=== PATIENT | female | born 1985 | race Caucasian/White ===

== ENCOUNTER → 2016-06-16 | Outpatient (CLI) | payer MEDICAID ==
[2016-06-16 10:21] LABS: ABSOLUTE BASOPHILS # (AUTO) 0.1 10^3/uL (0.0-0.2); ABSOLUTE EOSINOPHILS # (AUTO) 0.5 10^3/uL (0.0-0.6); ABSOLUTE LYMPHOCYTES (AUTO) 2.2 10^3/uL (0.5-4.7); ABSOLUTE MONOCYTES (AUTO) 0.6 10^3/uL (0.1-1.4); ABSOLUTE NEUT (AUTO) 8.5 10^3/uL (1.7-8.2); BASOPHILS % (AUTO) 0.5 % (0-2); HEMATOCRIT 38.6 % (36.0-47.0); HEMOGLOBIN 12.3 g/dL (12.0-15.5); HGB HCT DIFFERENCE -1.7; MEAN CORPUSCULAR HEMOGLOBIN 26.9 pg (27.0-33.4); MEAN CORPUSCULAR HGB CONC 31.9 g/dL (32.0-36.0); MEAN CORPUSCULAR VOLUME 84 fl (80-97); MONOCYTES % (AUTO) 5.1 % (3-13); RED BLOOD COUNT 4.57 10^6/uL (3.72-5.28); RED CELL DISTRIBUTION WIDTH 15.1 % (11.5-14.0); SEGMENTED NEUTROPHILS % (AUTO) 71.4 % (42-78); WHITE BLOOD COUNT 11.8 10^3/uL (4.0-10.5)
[2016-06-16 10:45] LABS: ALANINE AMINOTRANSFERASE 24 U/L (9-52); ALBUMIN 3.7 g/dL (3.5-5.0); ALKALINE PHOSPHATASE 71 U/L (38-126); ANION GAP 11 (5-19); ASPARTATE AMINO TRANSFERASE 15 U/L (14-36); BILIRUBIN,TOTAL 0.3 mg/dL (0.2-1.3); BLOOD UREA NITROGEN 16 mg/dL (7-20); CARBON DIOXIDE 25 mmol/L (22-30); CHLORIDE 108 mmol/L (98-107); CHOLESTEROL 153.34 mg/dL (0-200); CREATININE RESULT 0.76 mg/dL (0.52-1.25); Direct HDL 44 mg/dL (>40); GLUCOSE 96 mg/dL (75-110); POTASSIUM 4.8 mmol/L (3.6-5.0); TOTAL PROTEIN 6.9 g/dL (6.3-8.2); TRIGLYCERIDES 51 mg/dL (<150)
[2016-06-16 10:56] LABS: DIRECT LDL 82 mg/dL (<100)
[2016-06-16 11:12] LABS: THYROID STIMULATING HORMONE 3.25 uIU/mL (0.47-4.68)
== END ==
LOC: OD 08:31
PROVIDERS: ATTEND Nurse Practitioner Psychiatric/Mental Health
DX: F31.9 Bipolar disorder, unspecified (principal); Z79.899 Other long term (current) drug therapy
CPT/HCPCS: 36415; 80053; 80061; 83036; 84439; 84443; 85025

== ENCOUNTER → 2016-10-14 | Outpatient (CLI) | payer MEDICAID | LOC: WI 08:45 | PROVIDERS: ATTEND Physician Assistant | DX: N64.9 Disorder of breast, unspecified (principal) | CPT/HCPCS: 76641; G0204; 77066 ==

== ENCOUNTER 2018-04-09 20:52 | Emergency (ER) | payer MEDICAID ==
--- NOTE | 2018-04-09 21:51 | ER Document Report ---
ED General - General Chief Complaint: Fall Stated Complaint: FALL/FACIAL AND LEG INJURY Time Seen by Provider: 04/09/18 21:39 Notes: Patient is a 32-year-old female that presents to the emergency department for chief complaint of face pain, leg pain and back pain after fall. Patient states that she tripped over a piece of concrete in the road earlier this evening, while she was at a festival, she fell forward, she did hit her face, she did not lose consciousness. She also injured her lower back, and her left valdez. She denies any other injuries. She at this time denies having any headache, but has some pain in her face on the left side, her parts clerk plant maintenance did notice that she had a bleeding nose, but has since stopped. She is also complaining of pain in the lower back mainly in the middle, currently rates his pain as a 6 out of 10, worse with ranges of motion. She also has some pain of the left knee. And it was painful to put weight on it. Denies any numbness, tingling or weakness, denies saddle anesthesia or paresthesia. She also denies having any urinary incontinence, or stool incontinence. Past Medical History: Developmental delay, asthma Past Surgical History: Denies surgical history Social History: Denies tobacco, alcohol or drug use. Family History: Reviewed and noncontributory for presenting illness Allergies: Reviewed, see documented allergy list. REVIEW OF SYSTEMS: Other than noted above, the 12 point review of systems was reviewed with the patient and were negative, all pertinent findings are included in the HPI. PHYSICAL EXAMINATION: Vital signs reviewed, nursing noted reviewed. GENERAL: Well-appearing, well-nourished and in no acute distress. HEAD: normocephalic. EYES: Eyes appear normal, extraocular movements intact, sclera anicteric, conjunctiva are normal. PERRLA ENT: nares patent, oropharynx clear without exudates. Moist mucous membranes. Mild tenderness with palpation over the right zygoma, without deformity, no broken teeth noted. There is no evidence of nosebleed at this time. Nasal bridge is nontender to palpate. NECK: Normal range of motion, supple without lymphadenopathy LUNGS: Breath sounds clear to auscultation bilaterally and equal. No wheezes rales or rhonchi. HEART: Regular rate and rhythm without murmurs ABDOMEN: Soft, nontender, normoactive bowel sounds. No rebound, guarding, or rigidity. No masses appreciated. EXTREMITIES: Mild tenderness to palpation of the medial aspect of the left lower leg, there is spotted areas of ecchymosis, measuring approximately 2 cm x 2 cm, with tenderness to palpate in these areas as well, no gross deformity. The rest the patient's extremity exam is grossly unremarkable. good range of motion, no pitting or edema. Back: No step-offs or deformities, there is tenderness with palpation to the midline of the lumbar spine around L4, no upper thoracic back tenderness. NEUROLOGICAL: No focal neurological deficits. Moves all extremities spontaneously Motor and sensory grossly intact on exam. PSYCH: Normal mood, normal affect. SKIN: Warm, Dry, normal turgor, no rashes or lesions noted on exposed skin TRAVEL OUTSIDE OF THE [place] IN LAST 30 DAYS: No - Related Data Allergies/Adverse Reactions: No Known Allergies Allergy (Verified 04/09/18 20:54) Past Medical History - Social History Smoking Status: Never Smoker Family History: Reviewed & Not Pertinent Pulmonary Medical History: Reports: Hx Asthma Psychiatric Medical History: Reports: Hx Attention Deficit Hyperactivity Disorder, Hx Bipolar Disorder, Hx Depression - Immunizations Hx Diphtheria, Pertussis, Tetanus Vaccination: Yes Physical Exam - Vital signs Vitals: Temp Pulse Resp BP Pulse Ox 98.0 F 82 18 116/65 100 04/09/18 20:58 04/09/18 20:58 04/09/18 20:58 04/09/18 20:58 04/09/18 20:58 Course - Re-evaluation Re-evalutation: Patient was seen and evaluated. She was treated for her pain with Tylenol and naproxen initially, was still having some pain therefore she is given oxycodone 5 mg x1. Patient's imaging was obtained of her facial bones, x-rays of the lumbar spine and tibia were obtained. These were reviewed, and all were negative for any acute fracture or bony injury. Patient made aware of findings , will discharge with a prescription for Robaxin, and naproxen to take for pain and muscle spasms. Advised to follow-up with her primary care physician. - Vital Signs Vital signs: Temp Pulse Resp BP Pulse Ox 97.5 F 76 18 110/61 100 04/09/18 23:31 04/09/18 23:31 04/09/18 20:58 04/09/18 23:31 04/09/18 23:31 Discharge - Discharge Clinical Impression: Fall Qualifiers: Encounter type: initial encounter Qualified Code(s): W19.XXXA - Unspecified fall, initial encounter Back pain Qualifiers: Back pain location: low back pain Chronicity: acute Back pain laterality: midline Sciatica presence: unspecified whether sciatica present Qualified Code(s ): M54.5 - Low back pain Leg pain Qualifiers: Laterality: left Qualified Code(s): M79.605 - Pain in left leg Contusion of face Qualifiers: Encounter type: initial encounter Qualified Code(s): S00.83XA - Contusion of other part of head, initial encounter Condition: Stable Disposition: HOME, SELF-CARE Instructions: Contusion ([facility]), Low Back Pain ([facility]) Prescriptions: Methocarbamol [Robaxin 500 mg Tablet] 500 mg PO TID PRN #15 tablet PRN Reason: Muscle Spasms Naproxen 500 mg PO BID PRN #30 tablet PRN Reason: back pain Referrals: ORLY FINNEGAN PA-C [COMMUNITY BASED STAFF] - Follow up as needed
[2018-04-09] MEDS ORDERED: ACETAMINOPHEN 325 MG TABLET PO ONE (21:52)
[2018-04-09] MEDS ORDERED: NAPROXEN 250 MG TABLET PO ONE (21:52)
--- NOTE | 2018-04-09 22:39 | RADIOLOGY REPORT (SQ) ---
CT MAXILLOFACIAL WITHOUT IV CONTRAST HISTORY: Facial trauma. COMPARISON: None. TECHNIQUE: CT scan of the facial bones without IV contrast. This exam was performed according to our departmental dose-optimization program, which includes automated exposure control, adjustment of the mA and/or kV according to patient size and/or use of iterative reconstruction technique. FINDINGS: No acute facial bone fracture. No mucosal thickening or air-fluid levels in the paranasal sinuses. Mastoid air cells are clear. No retrobulbar mass or hematoma. IMPRESSION: No acute maxillofacial fracture.
--- NOTE | 2018-04-09 22:58 | RADIOLOGY REPORT (SQ) ---
EXAM DESCRIPTION: XR TIBIA FIBULA 2 VIEWS COMPLETED DATE/TME: 04/09/2018 21:51 CLINICAL HISTORY: 32 years, Female, left leg pain, injury COMPARISON: None. NUMBER OF VIEWS: TECHNIQUE: LIMITATIONS: None. FINDINGS: No fracture or dislocation. The knee and ankle joints appear intact. Bone mineralization appears normal. IMPRESSION: No fracture or dislocation. 2011 [facility] [employer]- All Rights Reserved
--- NOTE | 2018-04-09 23:05 | RADIOLOGY REPORT (SQ) ---
EXAM DESCRIPTION: XR LUMBAR SPINE ANTEROPOSTERIOR, LATERAL, AND OBLIQUES COMPLETED DATE/TME: 04/09/2018 21:51 CLINICAL HISTORY: 32 years Female, back pain, injury COMPARISON: None. Findings: Normal alignment and curvature. Mild disc desiccation at the thoracolumbar junction. Vertebral and intervertebral heights are maintained. Extraspinal structures are grossly intact. IMPRESSION: No acute findings of XR LUMBAR SPINE ANTEROPOSTERIOR, LATERAL, AND OBLIQUES. .
[2018-04-09] MEDS ORDERED: OXYCODONE HCL IR 5 MG TABLET PO ONE (23:10)
[2018-04-09 23:35] VITALS: BP 110/61
== END 2018-04-09 23:40 | disposition home or self-care (01) ==
LOC: ER 20:52
DX: S00.83XA Contusion of other part of head, initial encounter (principal); M79.605 Pain in left leg; M25.562 Pain in left knee; M54.5 Low back pain; W01.10XA Fall on same level from slipping, tripping and stumbling with subsequent striking against unspecified object, initial encounter; Y92.838 Other recreation area as the place of occurrence of the external cause
CPT/HCPCS: 99283; 72110; 73590; 70486; J3490 ×3

== ENCOUNTER → 2018-08-18 | Outpatient (CLI) | payer MEDICAID ==
[2018-08-18 13:47] LABS: ABSOLUTE EOSINOPHILS # (AUTO) 0.4 10^3/uL (0.0-0.6); ABSOLUTE LYMPHOCYTES (AUTO) 2.2 10^3/uL (0.5-4.7); ABSOLUTE MONOCYTES (AUTO) 0.5 10^3/uL (0.1-1.4); ABSOLUTE NEUT (AUTO) 8.4 10^3/uL (1.7-8.2); BASOPHILS % (AUTO) 0.3 % (0-2); EOSINOPHILS % (AUTO) 3.6 % (0-6); HEMATOCRIT 40.5 % (36.0-47.0); HEMOGLOBIN 13.5 g/dL (12.0-15.5); LYMPHOCYTES % (AUTO) 18.9 % (13-45); MEAN CORPUSCULAR HEMOGLOBIN 27.7 pg (27.0-33.4); MEAN CORPUSCULAR HGB CONC 33.4 g/dL (32.0-36.0); MEAN CORPUSCULAR VOLUME 83 fl (80-97); MONOCYTES % (AUTO) 4.4 % (3-13); RED BLOOD COUNT 4.88 10^6/uL (3.72-5.28); RED CELL DISTRIBUTION WIDTH 15.8 % (11.5-14.0); SEGMENTED NEUTROPHILS % (AUTO) 72.8 % (42-78); TOTAL CELLS COUNTED % (AUTO) 100 %; WHITE BLOOD COUNT 11.6 10^3/uL (4.0-10.5)
[2018-08-18 13:55] LABS: ALANINE AMINOTRANSFERASE 29 U/L (9-52); ALBUMIN 4.1 g/dL (3.5-5.0); ALKALINE PHOSPHATASE 73 U/L (38-126); ANION GAP 13 (5-19); ASPARTATE AMINO TRANSFERASE 25 U/L (14-36); BILIRUBIN,DIRECT 0.4 mg/dL (0.0-0.4); BILIRUBIN,TOTAL 0.5 mg/dL (0.2-1.3); BLOOD UREA NITROGEN 16 mg/dL (7-20); CALCIUM 9.5 mg/dL (8.4-10.2); CARBON DIOXIDE 20 mmol/L (22-30); CHLORIDE 106 mmol/L (98-107); CHOLESTEROL 169.44 mg/dL (0-200); GLUCOSE 89 mg/dL (75-110); POTASSIUM 4.2 mmol/L (3.6-5.0); SODIUM 139.3 mmol/L (137-145); TOTAL PROTEIN 7.5 g/dL (6.3-8.2); TRIGLYCERIDES 106 mg/dL (<150)
[2018-08-18 14:03] LABS: PLATELET COUNT 236 10^3/uL (150-450)
[2018-08-18 14:06] LABS: DIRECT LDL 87 mg/dL (<100)
[2018-08-18 14:22] LABS: FREE T4 (FREE THYROXINE) 1.08 ng/dL (0.78-2.19)
[2018-08-18 14:36] LABS: THYROID STIMULATING HORMONE 2.35 uIU/mL (0.47-4.68)
== END ==
LOC: OD 11:31
PROVIDERS: ATTEND Nurse Practitioner Psychiatric/Mental Health
DX: F31.9 Bipolar disorder, unspecified (principal)
CPT/HCPCS: 36415; 80053; 80061; 83036; 84439; 84443; 85025

== ENCOUNTER 2018-11-16 19:18 | Emergency (ER) | payer MEDICARE, MEDICAID ==
[2018-11-16] MEDS ORDERED: NORMAL SALINE 1000 ML 1,000 ML IV ONE (20:18)
[2018-11-16] MEDS ORDERED: ONDANSETRON HCL INJ/PF 4 MG/2 ML SDV IV ONE (20:18)
--- NOTE | 2018-11-16 20:19 | ER Document Report ---
ED Medical Screen (RME) - General Chief Complaint: Abdominal Pain Stated Complaint: STOMACH PAIN AND VOMITING Time Seen by Provider: 11/16/18 20:17 Primary Care Provider: SIA FELICIANO NP [Primary Care Provider] - Follow up as needed Information source: Patient, Parent Notes: Patient presents with right upper quadrant pain that started today. Patient does report nausea and vomiting. No fever. Patient denies any urinary symptoms. I have greeted and performed a rapid initial assessment of this patient. A comprehensive ED assessment and evaluation of the patient, analysis of test re sults and completion of the medical decision making process will be conducted by additional ED providers. TRAVEL OUTSIDE OF THE [place] IN LAST 30 DAYS: No - Related Data Allergies/Adverse Reactions: No Known Allergies Allergy (Verified 11/16/18 19:19) Past Medical History - Social History Frequency of alcohol use: None Drug Abuse: None Pulmonary Medical History: Reports: Hx Asthma Renal/ Medical History: Denies: Hx Peritoneal Dialysis Psychiatric Medical History: Reports: Hx Attention Deficit Hyperactivity Disorder, Hx Bipolar Disorder, Hx Depression - Immunizations Hx Diphtheria, Pertussis, Tetanus Vaccination: Yes Physical Exam - Vital signs Vitals: Temp Pulse Resp BP Pulse Ox 98.8 F 90 20 149/84 H 98 11/16/18 20:12 11/16/18 20:12 11/16/18 20:12 11/16/18 20:12 11/16/18 20:12 - Abdominal Inspection: Morbidly Obese Tenderness: Tender - Right upper quadrant Course - Vital Signs Vital signs: Temp Pulse Resp BP Pulse Ox 98.8 F 90 20 149/84 H 98 11/16/18 20:12 11/16/18 20:12 11/16/18 20:12 11/16/18 20:12 11/16/18 20:12 Doctor's Discharge - Discharge Referrals: SIA FELICIANO NP [Primary Care Provider] - Follow up as needed
--- NOTE | 2018-11-16 22:14 | RADIOLOGY REPORT (SQ) ---
EXAM DESCRIPTION: US ABDOMEN LIMITED COMPLETED DATE/TME: 11/16/2018 20:18 CLINICAL HISTORY: 33 years, Female, RUQ pain COMPARISON: None. TECHNIQUE: Axial 2-D grayscale images of the abdomen were performed. Doppler was utilized. LIMITATIONS: None. FINDINGS: Pancreas was not well-visualized secondary to overlying bowel gas artifact. Abdominal aorta was visualized with measurements as follows: Proximal abdominal aorta: 2.5 cm Mid abdominal aorta: 1.5 cm Distal abdominal aorta: 1.4 cm The liver is diffusely echogenic. It measures 18.5 cm in length. Antegrade flow is documented within the main portal vein. Gallbladder wall thickness measures 2 mm. Sonographic Kaplan sign was negative. Common bile duct diameter measures 3 mm. Right kidney measures 12.2 cm in length. The renal pelvis appears somewhat prominent. Otherwise, no other suspicious findings are evident. No significant free fluid is identified within the image abdomen. IMPRESSION: Echogenic liver, suggestive of hepatic steatosis. Mildly prominent right renal pelvis, possibly indicative of an extrarenal pelvis. copyright 2010 [employer]- All Rights Reserved
[2018-11-16] MEDS ORDERED: ONDANSETRON 4 MG TAB.RAPDIS ONE (22:20)
[2018-11-16] MEDS ORDERED: HYDROMORPHONE HCL INJ/PF 2 MG/ML AMPULE IV ONE (22:41)
[2018-11-16 23:11] LABS: APPEARANCE,URINE CLOUDY; BILIRUBIN,URINE NEGATIVE (NEGATIVE); CALCIUM OXALATE CRYSTALS,URINE MODERATE /HPF; COLOR,URINE YELLOW; GLUCOSE, URINE NEGATIVE (NEGATIVE); KETONES,URINE NEGATIVE (NEGATIVE); LEUKOCYTE ESTERASE,URINE NEGATIVE (NEGATIVE); NITRITE,URINE NEGATIVE (NEGATIVE); PROTEIN,URINE NEGATIVE (NEGATIVE); URINE SPECIFIC GRAVITY 1.024
[2018-11-16 23:29] LABS: ABSOLUTE EOSINOPHILS # (AUTO) 0.2 10^3/uL (0.0-0.6); ABSOLUTE LYMPHOCYTES (AUTO) 1.5 10^3/uL (0.5-4.7); ABSOLUTE MONOCYTES (AUTO) 0.8 10^3/uL (0.1-1.4); ABSOLUTE NEUT (AUTO) 17.2 10^3/uL (1.7-8.2); BASOPHILS % (AUTO) 0.2 % (0-2); EOSINOPHILS % (AUTO) 1.1 % (0-6); HEMATOCRIT 41.1 % (36.0-47.0); HEMOGLOBIN 13.7 g/dL (12.0-15.5); LYMPHOCYTES % (AUTO) 7.5 % (13-45); MEAN CORPUSCULAR HEMOGLOBIN 27.2 pg (27.0-33.4); MEAN CORPUSCULAR HGB CONC 33.2 g/dL (32.0-36.0); MEAN CORPUSCULAR VOLUME 82 fl (80-97); PLATELET COUNT 310 10^3/uL (150-450); RED BLOOD COUNT 5.01 10^6/uL (3.72-5.28); RED CELL DISTRIBUTION WIDTH 15.8 % (11.5-14.0); SEGMENTED NEUTROPHILS % (AUTO) 87.2 % (42-78); TOTAL CELLS COUNTED % (AUTO) 100 %; WHITE BLOOD COUNT 19.7 10^3/uL (4.0-10.5)
[2018-11-17 01:31] LABS: ALANINE AMINOTRANSFERASE 12 U/L (9-52); ALBUMIN 4.6 g/dL (3.5-5.0); ALKALINE PHOSPHATASE 84 U/L (38-126); ANION GAP 13 (5-19); ASPARTATE AMINO TRANSFERASE 20 U/L (14-36); BILIRUBIN,DIRECT 0.2 mg/dL (0.0-0.4); BILIRUBIN,TOTAL 0.3 mg/dL (0.2-1.3); BLOOD UREA NITROGEN 16 mg/dL (7-20); CALCIUM 9.9 mg/dL (8.4-10.2); CARBON DIOXIDE 21 mmol/L (22-30); CHLORIDE 110 mmol/L (98-107); GLUCOSE 151 mg/dL (75-110); LIPASE 88.3 U/L (23-300); POTASSIUM 4.1 mmol/L (3.6-5.0); SODIUM 143.8 mmol/L (137-145); TOTAL PROTEIN 8.5 g/dL (6.3-8.2)
[2018-11-17] MEDS ORDERED: KETOROLAC TROMETHAMINE INJ/PF 30 MG/1 ML SDV IV ONE (01:58)
--- NOTE | 2018-11-17 02:31 | ER Document Report ---
Entered by NOBLE AKHTAR SCRIBE 11/17/18 0202 Acting as scribe for:TIFFANIE DUNNE MD ED General - General Chief Complaint: Abdominal Pain Stated Complaint: STOMACH PAIN AND VOMITING Time Seen by Provider: 11/16/18 20:17 Primary Care Provider: MADALYN MCGEE MD [PEDIATRICS] - Follow up as needed Mode of Arrival: Ambulatory Information source: Patient Notes: Patient is a 33 year old female with a history of kidney stones presents to the emergency department complaining of abdominal pain onset yesterday. Patient states she had a sudden onset of sharp right upper quadrant abdominal pain around 1630 yesterday. She also complains of nausea and vomiting further stating she has had 2 vomiting episodes since the onset. Mother states "It has been a long time" since the patient's last kidney stone. TRAVEL OUTSIDE OF THE [place] IN LAST 30 DAYS: No - Related Data Allergies/Adverse Reactions: No Known Allergies Allergy (Verified 11/16/18 19:19) Past Medical History - General Information source: Patient, Parent - Social History Smoking Status: Never Smoker Cigarette use (# per day): No Chew tobacco use (# tins/day): No Smoking Education Provided: No Frequency of alcohol use: None Drug Abuse: None Lives with: Parents Family History: Reviewed & Not Pertinent Patient has suicidal ideation: No Patient has homicidal ideation: No Pulmonary Medical History: Reports: Hx Asthma Renal/ Medical History: Reports: Hx Kidney Stones Psychiatric Medical History: Reports: Hx Attention Deficit Hyperactivity Disorder, Hx Bipolar Disorder, Hx Depression - Immunizations Hx Diphtheria, Pertussis, Tetanus Vaccination: Yes Review of Systems - Review of Systems Constitutional: No symptoms reported EENT: No symptoms reported Cardiovascular: No symptoms reported Gastrointestinal: See HPI, Abdominal pain, Nausea, Vomiting Genitourinary: No symptoms reported Female Genitourinary: No symptoms reported Musculoskeletal: No symptoms reported Skin: No symptoms reported Hematologic/Lymphatic: No symptoms reported Neurological/Psychological: No symptoms reported -: Yes All other systems reviewed and negative Physical Exam - Vital signs Vitals: Temp Pulse Resp BP Pulse Ox 98.8 F 90 20 149/84 H 98 11/16/18 20:12 11/16/18 20:12 11/16/18 20:12 11/16/18 20:12 11/16/18 20:12 - Notes Notes: GENERAL: Alert, interacts well. No acute distress. HEAD: Normocephalic, atraumatic. EYES: Pupils equal, round, and reactive to light. Extraocular movements intact. ENT: Oral mucosa moist, tongue midline. NECK: Full range of motion. Supple. Trachea midline. LUNGS: Clear to auscultation bilaterally, no wheezes, rales, or rhonchi. No respiratory distress. HEART: Regular rate and rhythm. No murmurs, gallops, or rubs. ABDOMEN: Soft, obese, RUQ tenderness to palpation, . Non-distended. Bowel sounds present in all 4 quadrants. No guarding, rigidity, or rebound. EXTREMITIES: Moves all 4 extremities spontaneously. NEUROLOGICAL: Alert and oriented x3. Normal speech. PSYCH: Normal affect, normal mood. SKIN: Warm, dry, normal turgor. No rashes or lesions noted. BACK: No CVA tenderness to percussion. Course - Re-evaluation Re-evalutation: 11/17/18 03:15 CT scan suggests a recently passed stone. Given the amount of hematuria on a patient who is not on her period, this seems to be the most likely explanation. - Vital Signs Vital signs: Temp Pulse Resp BP Pulse Ox 98.0 F 90 20 136/74 H 100 11/17/18 01:47 11/17/18 01:47 11/17/18 01:47 11/17/18 01:47 11/17/18 01:47 - Laboratory Result Diagrams: 11/16/18 22:30 11/17/18 01:01 Laboratory results interpreted by me: 11/16/18 11/16/18 11/17/18 20:47 22:30 01:01 WBC 19.7 H RDW 15.8 H Seg Neutrophils % 87.2 H Lymphocytes % 7.5 L Absolute Neutrophils 17.2 H Chloride 110 H Carbon Dioxide 21 L Glucose 151 H Total Protein 8.5 H Urine Blood LARGE H Urine Urobilinogen 2.0 H - Diagnostic Test Radiology reviewed: Image reviewed, Reports reviewed - Abdominal ultrasound shows an echogenic liver suggestive of hepatic steatosis. There is a mildly prominent right renal pelvis. The gallbladder and common bile duct are unremarkable. Noncontrasted CT scan abdomen pelvis shows mild right hydronephrosis without hydroureter. There is no evidence of renal or ureteral stone. Diagnostic possibilities include a recently passed right ureteral stone and a mild chronic right ureteropelvic junction obstruction. Discharge - Discharge Clinical Impression: Right upper quadrant abdominal pain Hematuria Qualifiers: Hematuria type: other microscopic Qualified Code(s): R31.29 - Other microscopic hematuria Condition: Stable Disposition: HOME, SELF-CARE Additional Instructions: Kidney Stone: You may have passed a kidney stone. These stones are usually due to increased calcium or uric acid concentrations in your urine. Stones within the kidney itself are not painful. The pain occurs as the stone leaves the kidney to pass down the long tube, called the ureter, leading to the bladder. Drink three or four quarts of fluids per day. Return if pain or vomiting become severe, if you develop a high fever, if you are unable to pass your urine, or if other unusual symptoms occur. You have most likely passed a kidney stone on the right side. Take the dispensed pain medications tonight for pain if needed. Take ibuprofen 800 mg every 8 hours for pain control. Drink plenty of fluids over the next few days. Follow-up with your primary care provider in 1 to 2 days if not improving. RETURN TO THE EMERGENCY ROOM IF ANY NEW OR WORSENING SYMPTOMS. Referrals: MADALYN MGCEE MD [PEDIATRICS] - Follow up as needed Scribe Attestation: 11/17/18 02:31 I personally performed the services described in the documentation, reviewed and edited the documentation which was dictated to the scribe in my presence, and it accurately records my words and actions. I personally performed the services described in the documentation, reviewed and edited the documentation which was dictated to the scribe in my presence, and it accurately records my words and actions.
--- NOTE | 2018-11-17 02:49 | RADIOLOGY REPORT (SQ) ---
EXAM DESCRIPTION: CT ABDOMEN PELVIS WITHOUT IV CONTRAST COMPLETED DATE/TME: 11/17/2018 01:58 CLINICAL HISTORY: 33 years, Female, Right flank pain, hematuria COMPARISON: None. TECHNIQUE: Axial images of the abdomen and pelvis were performed without the use of intravenous contrast, with sagittal and coronal reformatted images. Images stored on PACS. All CT scanners at this facility use dose modulation, iterative reconstruction, and/or weight based dosing when appropriate to reduce radiation dose to as low as reasonably achievable (ALARA). [facility]: Dose Right [facility]: CareDose [facility]: Dose Right [facility]: Teradose 4D [facility]: [employer] LIMITATIONS: None. FINDINGS: There is mild right hydronephrosis. The right ureter is not dilated. There is no evidence of renal or ureteral stone. Evaluation of the renal parenchyma is limited, due to the lack of intravenous contrast. There is no gross evidence of renal mass. The appendix appears normal. No evidence of bowel obstruction. There is no significant radiographic abnormality of the liver, spleen, pancreas or adrenal glands. No free air or free fluid. IMPRESSION: Mild right hydronephrosis. Diagnostic possibilities include a recently passed right ureteral stone and a mild chronic right ureteropelvic junction obstruction. TECHNICAL DOCUMENTATION: Quality ID # [id number]: Final reports with documentation of one or more dose reduction techniques (e.g., Automated exposure control, adjustment of the mA and/or kV according to patient size, use of iterative reconstruction technique) copyright 2011 [employer]- All Rights Reserved
[2018-11-17] MEDS ORDERED: HYDROCODONE/ACETAMINOPHEN 5-325 MG (6 TAB/ER DISP) PO PRN (03:21)
[2018-11-17] MEDS ORDERED: ONDANSETRON ODT 4 MG TAB (6 TAB/ER DISP) PO PRN (03:21)
[2018-11-17 03:52] VITALS: BP 111/51
== END 2018-11-17 04:06 | disposition home or self-care (01) ==
LOC: ER 19:18
DX: R10.11 Right upper quadrant pain (principal); R31.29 Other microscopic hematuria; R10.9 Unspecified abdominal pain; R11.2 Nausea with vomiting, unspecified; J45.909 Unspecified asthma, uncomplicated
CPT/HCPCS: 99284; 96361; 96374; 36415; 83690; 84703; 85025; 80053; 81001; 76705; 74176; J1885; J1170; J7030; A9270 ×2

== ENCOUNTER 2019-01-16 12:12 | Emergency (ER) | payer MEDICARE, MEDICAID ==
[2019-01-16] MEDS ORDERED: HYDROXYZINE HCL 10 MG TABLET PO ONE ×2 (14:19→14:24)
--- NOTE | 2019-01-16 14:25 | ER Document Report ---
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 Mother states that the patient and her were outside on Wednesday working and pulling weeds when she potentially got exposed to poison marielos. She states the rash did develop a bad night. She states she has used Benadryl and calamine lotion with minimal relief. She reports that the rash is primarily on her fingers and in between the fingers. She has noted that it started to spread up the right forearm. Mother states she does have a similar rash but does not appear as bad. Patient denies fever. - REPRODUCTIVE Reproductive: DENIES: : Past Medical History - General Information source: Patient, Parent - Social History Smoking Status: Never Smoker Frequency of alcohol use: None Drug Abuse: None Lives with: Family Family History: Reviewed & Not Pertinent - Past Medical History Cardiac Medical History: Reports: None Pulmonary Medical History: Reports: Hx Asthma EENT Medical History: Reports: None Neurological Medical History: Reports: None Endocrine Medical History: Reports: None Renal/ Medical History: Reports: Hx Kidney Stones. Denies: Hx Peritoneal Dialysis Malignancy Medical History: Reports: None GI Medical History: Reports: None Musculoskeletal Medical History: Reports None Skin Medical History: Reports None Psychiatric Medical History: Reports: Hx Attention Deficit Hyperactivity Disorder, Hx Bipolar Disorder, Hx Depression Traumatic Medical History: Reports: None Infectious Medical History: Reports: None - Immunizations Hx Diphtheria, Pertussis, Tetanus Vaccination: Yes Vertical Provider Document - CONSTITUTIONAL Agree With Documented VS: Yes Exam Limitations: No Limitations General Appearance: No Apparent Distress - INFECTION CONTROL TRAVEL OUTSIDE OF THE [place] IN LAST 30 DAYS: No - HEENT HEENT: Atraumatic, Normal ENT Exam, Normocephalic, PERRLA - RESPIRATORY Respiratory: Breath Sounds Normal, No Respiratory Distress - CARDIOVASCULAR Cardiovascular: Regular Rate, Regular Rhythm - GI/ABDOMEN Gastrointestinal: Abdomen Soft, Abdomen Non-Tender, Normal Bowel Sounds - BACK Back: Normal Inspection - MUSCULOSKELETAL/EXTREMETIES Musculoskeletal/Extremeties: No Edema - NEURO Level of Consciousness: Awake, Alert, Appropriate - DERM Integumentary: Rash Notes: Scattered papules and vesicles noted to bilateral hands and bilateral forearms. No oozing lesions or signs of cellulitis. Course - Vital Signs Vital signs: Temp Pulse Resp BP Pulse Ox 98.2 F 86 18 138/76 H 99 01/16/19 12:19 01/16/19 12:19 01/16/19 12:19 01/16/19 12:19 01/16/19 12:19 Discharge - Discharge Clinical Impression: Poison marielos dermatitis Condition: Stable Disposition: HOME, SELF-CARE Additional Instructions: Today you were seen in the emergency department for a rash to the hands and forearm. Your rash is consistent with poison marielos or poison oak exposure. This is consistent with the yard work that you are doing on Wednesday as you could have been exposed. Typically this is a contact dermatitis. I will place you on oral steroids. This will be a taper dose over course of 6 days. At this time I do not believe you need a longer course of steroids as it does not appear to be severe and is only located on the hands and forearm. You are also being prescribed Atarax which is an antihistamine. This is for itching. Do not mix this medication with other antihistamines such as Benadryl. Please return to the emergency department if the rash worsens or spreads, if you have streaking redness of the arms, swollen glands, swelling or fever. Poison Marielos Poison marielos and poison oak can cause an itchy rash. This is called contact dermatitis. It's an allergy to an oil in the plant's leaves. The oil can be spread from clothing to skin, from pets to humans, or from one spot on the body to another. Washing thoroughly with soap immediately after exposure can prevent the rash. (Clothing should be washed as well.) If the oil is not removed, an itchy rash develops a few days after the exposure. Blisters may develop. Two to three weeks may be required for healing. Generally, treatment consists of: (1) an immediate thorough washing with soap to remove the oil, (2) application of a cortisone cream, and (3) antihistamines for itching. If the reaction is particularly severe, oral cortisone medicine may be re quired. If there are oozing areas, these can be soaked in epsom salts or Reagan's solution. Call the doctor if the rash worsens despite treatment, or if signs of infection occur such as spreading redness, red streaks, swollen glands, swelling, or fever. Prescriptions: Hydroxyzine HCl [Atarax 25 mg Tablet] 1 tab PO QID #25 tablet RX: Prednisone [Deltasone 10 mg Tablet] 10 mg PO ASDIR PRN #21 tablet PRN Reason: Referrals: SIA FELICIANO COMPUTER ENGINEERING TECHNOLOGIST [Primary Care Provider] - Follow up as needed
[2019-01-16 14:40] VITALS: BP 103/68
== END 2019-01-16 14:41 | disposition home or self-care (01) ==
LOC: ER 12:12
DX: L23.7 Allergic contact dermatitis due to plants, except food (principal); Z87.442 Personal history of urinary calculi
CPT/HCPCS: 99282